=== PATIENT | male | born 1960 ===

== ENCOUNTER 2025-01-01 06:26 | Day surgery (SDC) | payer BC, SELFPAY | END 2025-01-01 09:46 | disposition home or self-care (01) | LOC: GI 06:26 | PROVIDERS: ATTENDING PHYSICIAN Internal Medicine Gastroenterology | DX: K44.9 Diaphragmatic hernia without obstruction or gangrene (principal); K31.7 Polyp of stomach and duodenum | CPT/HCPCS: 43239; 88305 ==